=== PATIENT | female | born 1985 | race Caucasian/White ===

== ENCOUNTER 2018-08-06 18:03 | Emergency (ER) | payer MEDICAID ==
[~2018-08-06] VITALS: Ht 172.7 cm; Wt 59.1 kg
[2018-08-06 18:50] VITALS: Ht 172.7 cm; Wt 59.1 kg
[2018-08-06] MEDS ORDERED: KLONOPIN1 MG PO (18:52)
[2018-08-06] MEDS ORDERED: CELEXA40 MG PO (18:53)
[2018-08-06] MEDS ORDERED: CETIRIZINE HCL5 MG PO (18:53)
[2018-08-06] MEDS ORDERED: IBUPROFEN400 MG PO (18:54)
[2018-08-06] MEDS ORDERED: VOLTAREN75 MG PO (21:07)
[2018-08-06] MEDS ORDERED: ROBAXIN500 MG PO (21:07)
[2018-08-06 21:40] VITALS: BP 145/98
== END 2018-08-06 21:40 | disposition home or self-care (01) ==
LOC: D.ER 18:03
DX: S16.1XXA Strain of muscle, fascia and tendon at neck level, initial encounter (principal); V43.52XA Car driver injured in collision with other type car in traffic accident, initial encounter; Y93.89 Activity, other specified; Y92.410 Unspecified street and highway as the place of occurrence of the external cause; S89.91XA Unspecified injury of right lower leg, initial encounter; R60.0 Localized edema; R51 Headache; F17.200 Nicotine dependence, unspecified, uncomplicated

== ENCOUNTER 2021-01-19 09:54 | Outpatient (CLI) | payer MEDICAID ==
[2018-08-06 18:50] VITALS: BMI 19.8
[~2021-01-19 09:54] MED LIST: CELEXA40 MG PO; CETIRIZINE HCL5 MG PO; IBUPROFEN400 MG PO; KLONOPIN1 MG PO; ROBAXIN500 MG PO; VOLTAREN75 MG PO
[2021-01-19 10:33] LABS: BASOPHILS 0.2 % (0-2); EOSINOPHILS 0.5 % (0-7); HEMATOCRIT 35.9 % (36.0-48.0); HEMOGLOBIN 12.1 g/dL (12-16); IMMATURE GRANULOCYTES 0.3 % (0-5); LYMPHOCYTE ABS# 1.79 10x3/uL (1.18-3.74); LYMPHOCYTES 15.9 % (15-50); MCH 29.6 pg (26.0-34.0); MCHC 33.7 g/dL (31.0-37.0); MCV 87.8 fL (80.0-100.0); MEAN PLATELET VOLUME 8.8 fL (7.4-10.4); MONOCYTES 5.4 % (2-11); NEUTROPHIL ABS# 8.74 10x3/uL (1.56-6.13); NEUTROPHILS 77.7 % (40-80); RBC 4.09 10x6/uL (4.00-5.40); RDW 13.2 % (11.5-14.5); WBC 11.3 10x3/uL (4.8-10.8)
[2021-01-19 10:34] LABS: PLATELET COUNT 361 10x3/uL (130-400)
[2021-01-19 10:41] LABS: CALC OSMOLALITY 273 mosm/kg (275-300); CALCIUM 8.5 mg/dL (8.5-10.1); CARBON DIOXIDE 28.9 mmol/L (21.0-32.0); CHLORIDE - SERUM 105 mmol/L (98-107); CREATININE - SERUM 0.7 mg/dL (0.6-1.3); GLUCOSE 82 mg/dL (74-106); POTASSIUM - SERUM 3.5 mmol/L (3.5-5.1); SODIUM 138 mmol/L (136-145); UREA NITROGEN 9 mg/dL (7-18); eGFR NON AFRICAN AMERICAN > 90 mL/min (90-120)
[2021-01-19 10:49] LABS: ALBUMIN 2.4 g/dL (3.4-5.0); ALKALINE PHOSPHATASE 87 U/L (30-120); ALT (SGPT) 22 U/L (10-68); BILIRUBIN - DIRECT 0.09 mg/dL (0.00-0.30); BILIRUBIN - TOTAL 0.39 mg/dL (0.2-1.3); URIC ACID 1.6 mg/dL (2.6-7.2)
[2021-01-19 10:50] LABS: UDS - AMPHET POSITIVE QUAL (NEGATIVE); UDS - BARB NEGATIVE QUAL (NEGATIVE); UDS - BENZO NEGATIVE QUAL (NEGATIVE); UDS - COCAINE NEGATIVE QUAL (NEGATIVE); UDS - OPIATE NEGATIVE QUAL (NEGATIVE); UDS - PCP NEGATIVE QUAL (NEGATIVE); UDS - THC NEGATIVE QUAL (NEGATIVE)
[2021-01-19 11:07] LABS: BILIRUBIN NEGATIVE (NEGATIVE); KETONE NEGATIVE (NEGATIVE); NITRITE NEGATIVE (NEGATIVE)
[2021-01-19 11:08] LABS: AMORPHOUS SEDIMENT <1+ LPF (NONE SEEN); BACTERIA FEW HPF (NONE SEEN); SQUAMOUS EPITHELIAL 0-5 HPF (0-4); WHITE CELLS - URINE 0-5 HPF (0-4)
[2021-01-20 07:16] LABS: RAPID PLASMA REAGIN Non Reactive (Non Reactive)
[2021-01-20 09:13] LABS: HEPATITIS C ANTIBODY <0.1 S/CO RAT (0.0-0.9); RUBELLA IGG <0.90 index (Immune >0.99)
[2021-01-20 12:23] LABS: PROTEIN - URINE 23.3 mg/dL (0.0-11.9)
[2021-01-20 16:09] LABS: HGB SOLUBILITY (SICKLE SCREEN) Negative (Negative)
[2021-01-23 11:09] LABS: UDSC - AMPHET Positive (Cutoff=1000); UDSC - BARB Negative ng/mL (Cutoff=300); UDSC - BENZO Negative ng/mL (Cutoff=300); UDSC - COC Negative ng/mL (Cutoff=300); UDSC - METH Negative ng/mL (Cutoff=300); UDSC - OPIATES Negative ng/mL (Cutoff=300); UDSC - PCP Negative ng/mL (Cutoff=25); UDSC - PROPOXY Negative ng/mL (Cutoff=300); UDSC - THC Negative ng/mL (Cutoff=50)
== END 2021-01-20 13:18 | disposition home or self-care (01) ==
LOC: D.LDO 09:54 → D.LD 22:59 → D.LDO 01-20 09:54
PROVIDERS: ATTEND Obstetrics & Gynecology
DX: O16.9 Unspecified maternal hypertension, unspecified trimester (principal)

== ENCOUNTER 2021-01-25 13:27 | Outpatient (CLI) | payer MEDICAID ==
[2018-08-06 18:50] VITALS: BMI 19.8
== END 2021-01-25 14:08 | disposition home or self-care (01) ==
LOC: D.LDO 13:27
PROVIDERS: ATTEND Obstetrics & Gynecology
DX: O10.919 Unspecified pre-existing hypertension complicating pregnancy, unspecified trimester (principal)

== ENCOUNTER 2021-02-21 05:25 | Inpatient (IN) | payer MEDICAID ==
[2021-02-21] VITALS (7 sets, daily range): BP systolic 107–171; BP diastolic 63–95; Ht 172.7 cm; Wt 67.6 kg
[~2021-02-21] VITALS: Ht 172.7 cm; Wt 67.6 kg
[2021-02-21] MEDS ORDERED: NORMODYNE / TR100 MG (05:34)
[2021-02-21 06:45] LABS: HEMATOCRIT 33.1 % (36.0-48.0); HEMOGLOBIN 10.7 g/dL (12-16); MCHC 32.3 g/dL (31.0-37.0); MCV 86.6 fL (80.0-100.0); MEAN PLATELET VOLUME 9.4 fL (7.4-10.4); RBC 3.82 10x6/uL (4.00-5.40); RDW 14.3 % (11.5-14.5); WBC 8.9 10x3/uL (4.8-10.8)
[2021-02-21 07:54] LABS: UDS - AMPHET POSITIVE QUAL (NEGATIVE); UDS - BARB NEGATIVE QUAL (NEGATIVE); UDS - BENZO NEGATIVE QUAL (NEGATIVE); UDS - COCAINE NEGATIVE QUAL (NEGATIVE); UDS - OPIATE NEGATIVE QUAL (NEGATIVE); UDS - PCP NEGATIVE QUAL (NEGATIVE); UDS - THC NEGATIVE QUAL (NEGATIVE)
--- NOTE | 2021-02-21 10:09 | NUR ---
PT REPORTS THAT SHE IS SUPPOSED TO TAKE LABETOLOL TID, HOWEVER DOES NOT KNOW WHEN SHE LAST TOOK MEDS.
--- NOTE | 2021-02-21 19:15 | NUR ---
PT A,A,OX4. BLOOD PRESSURE ELEVATED. NOTIFIED. ORDERS RECEIVED TO RESTART LABETOLOL. FF,MIDLINE U1. SMALL AMOUNT RUBRA LOCHIA NOTED. PERIPADS AND ICE PACK PROVIDED. PT UP TO BR SECOND TIME. VOIDS WITHOUT DIFFICULTY. PT DENIES NEEDS AT THIS TIME. CALL LIGHT WITHIN REACH.
--- NOTE | 2021-02-21 19:30 | NUR ---
SANDWICH AND COLA PROVIDED. PT DENIES NEEDS AT THIS TIME.
--- NOTE | 2021-02-21 20:05 | NUR ---
PT TRANSFERRED TO ROOM 1257.
--- NOTE | 2021-02-21 20:22 | NUR ---
PAIN MEDICATION ADMINISTERED. PT DENIES NEEDS AT THIS TIME.
--- NOTE | 2021-02-21 22:15 | NUR ---
PT UPSET AND STATES "SHE DID NOT SHOOT UP ON METH THIS MORNING AND THE BABY'S DOCTOR SAID SHE HAD TOLD A NURSE THAT SHE SAID THAT THIS MORNING." EXPLAINED TO PT THAT POSITIVE DRUG SCREENING DURING ANY TIME OF FLAGS TO DRUG SCREEN BABY. EXPLAINED TO PATIENT THAT CASE MANAGEMENT IS NOTIFIED PER [employer] AND [employer] WILL TALK WITH HER. PT STATES SHE UNDERSTANDS.
[2021-02-22] VITALS: BP 138/80
--- NOTE | 2021-02-22 00:30 | NUR ---
PT , SIGNIFICANT OTHER AT BEDSIDE. PT DENIES NEEDS AT THIS TIME.
[2021-02-22 01:00] VITALS: BP 141/82
--- NOTE | 2021-02-22 01:23 | NUR ---
ICE PROVIDED. PT DENIES OTHER NEEDS AT THIS TIME. IN CRIB. CALL LIGHT WITHIN REACH.
[2021-02-22 01:30] VITALS: BP 144/86
[2021-02-22 02:30] VITALS: BP 149/80
--- NOTE | 2021-02-22 05:45 | NUR ---
PT SITTING UP IN BED TALKING. DENIES NEEDS AT THIS TIME.
--- NOTE | 2021-02-22 05:58 | NUR ---
DR LOWE GIVEN REPORT ON BP. NO ORDERS RECEIVED AT THIS TIME.
[2021-02-22 07:15] LABS: RAPID PLASMA REAGIN Non Reactive (Non Reactive)
--- NOTE | 2021-02-22 08:18 | NUR ---
AM ASSESSMENT COMPLETED AND CHARTED TO FLOWSHEET. FUNDUS FIRM AT U/U WITH LIGHT BLEEDING NOTED TO KENNETH PAD, SHE DENIES CLOTS WITH VOIDS. RATES PAIN AT 0/10 AT THIS TIME. IN CRIB AT BEDSIDE. PT DENIES NEEDS AT THIS TIME. CALL LIGHT IS WITH IN HER REACH, SIDE RAILS UP X 2.
--- NOTE | 2021-02-22 09:45 | NUR ---
[facility] LIGHT INDUSTRIAL AT BEDSIDE.
--- NOTE | 2021-02-22 11:45 | NUR ---
LARGE CUP OF ICE REQESTED, CONTNUE TO RATE PAIN AT 0/10. ADDITIONAL KENNETH PADS AND MESH BRIEFS PLACED IN BATHROOM. CALL LIGHT IS WITH IN HER REACH AND INFANT IN CRIB AT BEDSIDE.
--- NOTE | 2021-02-22 14:08 | NUR ---
PT DENIES NEEDS, RATES PAIN AT 0/10. INFANT IN CRIB AT BEDSIDE. CALL LIGHT IN REACH.
--- NOTE | 2021-02-22 15:50 | NUR ---
SALINE LOCK REMOVED WITH CATH INTACT. PT RATES PAIN AT 0/10. LARGE CUP OF ICE REQUESTED. PT PROVIDED WITH ROOMING IN PAPERWORK TO READ OVER. IN CRIB AT BEDSIDE, CALL LIGHT IN REACH.
[2021-02-22] MEDS ORDERED: IBUPROFEN600 MG PO (17:06)
--- NOTE | 2021-02-22 17:45 | NUR ---
TO ROOM TO GO OVER DISCHARGE/ROOMING IN INSTRUCTIONS. TO BREAST AT THIS TIME. PT WILL CALL WHEN SHE IS FINISHED FEEDING.
--- NOTE | 2021-02-22 20:36 | NUR ---
MMR GIVEN PER ORDERS. SEE EMAR FOR ADMINISTRATION. D/C INSTRUCTIONS EXPLAINED, SIGND, AND WITNESSED. PT WILL BE ROOMING IN DUE TO NOT D/C'D AT THIS TIME.
== END 2021-02-22 20:39 | disposition home or self-care (01) | DRG 806 ==
LOC: D.LD 05:25
PROVIDERS: ADMIT Obstetrics & Gynecology; ATTEND Obstetrics & Gynecology
PROC: 10E0XZZ Delivery of Products of Conception, External Approach (ICD-10-PCS; principal; 2021-02-21)
PROC: 3E033VJ Introduction of Other Hormone into Peripheral Vein, Percutaneous Approach (ICD-10-PCS; 2021-02-21)
PROC: 10907ZC Drainage of Amniotic Fluid, Therapeutic from Products of Conception, Via Natural or Artificial Opening (ICD-10-PCS; 2021-02-21)
PROC: 0HQ9XZZ Repair Perineum Skin, External Approach (ICD-10-PCS; 2021-02-21)
DX: O13.4 Gestational [pregnancy-induced] hypertension without significant proteinuria, complicating childbirth (principal); O98.32 Other infections with a predominantly sexual mode of transmission complicating childbirth; Z37.0 Single live birth; Z3A.37 37 weeks gestation of pregnancy; O70.0 First degree perineal laceration during delivery; O99.324 Drug use complicating childbirth; F15.10 Other stimulant abuse, uncomplicated; O99.824 Streptococcus B carrier state complicating childbirth; O99.344 Other mental disorders complicating childbirth; F32.9 Major depressive disorder, single episode, unspecified; A59.9 Trichomoniasis, unspecified; Z91.19 Patient's noncompliance with other medical treatment and regimen